=== PATIENT | female | born 1995 | race Caucasian/White ===

== ENCOUNTER 2019-06-27 14:43 | Emergency (ER) | payer OTHER ==
[~2019-06-27] VITALS: Ht 165.1 cm; Wt 111.4 kg
[2019-06-27 15:07] VITALS: BP 146/103; Ht 165.1 cm; Wt 111.4 kg
== END 2019-06-27 15:50 | disposition home or self-care (01) ==
LOC: D.ER 14:43
DX: M79.641 Pain in right hand (principal); M79.644 Pain in right finger(s); S63.614A Unspecified sprain of right ring finger, initial encounter; X58.XXXA Exposure to other specified factors, initial encounter